=== PATIENT | male | born 1965 | race Caucasian/White ===

== ENCOUNTER 2017-07-11 13:37 | Emergency (ER) | payer OTHER ==
[~2017-07-11] VITALS: Ht 185.4 cm; Wt 105.4 kg
[2017-07-11 13:44] VITALS: TEMP 37.2; Ht 185.4 cm; Wt 105.4 kg
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
[2017-07-11] MEDS ORDERED: SODIUM CHLORIDE 0.9% 1000ML 1,000 ML IV STA (14:22)
[2017-07-11] MEDS ORDERED: OPTIRAY 320 IV PRN (14:30)
[2017-07-11 15:07] LABS: ISTAT CREATININE 0.8 mg/dl (0.6-1.3); ISTAT IONIZED CALCIUM 1.16 mmol/l (1.12-1.32)
--- NOTE | 2017-07-11 15:10 | DIAGNOSTIC IMAGING REPORT ---
LEFT FOOT MIN 3 VIEWS ROUTINE CLINICAL HISTORY: L foot pain, swelling pain. Edema. COMPARISON: None. DISCUSSION: Severe degenerative change first metatarsophalangeal joint. Sclerosis of the articular services. Moderate surrounding soft tissue edematous change. Heel spur. No additional acute bony abnormality. There is no evidence for soft tissue swelling. IMPRESSION: Significant degenerative change first metatarsophalangeal joint with surrounding soft tissue edematous change. Heel spur. The above report was generated using voice recognition software. It may contain grammatical, syntax or spelling errors. Electronically signed by: Emre Hernandez M.D. 07/11/2017 3:08 PM Dictated Date/Time: 07/11/2017 3:07 PM
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
[2017-07-11 17:34] VITALS: BP 143/94; PULSE 71; O2SAT 99
== END 2017-07-11 17:23 | disposition home or self-care (01) ==
LOC: C.EDC 13:41
DX: S90.32XA Contusion of left foot, initial encounter (principal); S20.20XA Contusion of thorax, unspecified, initial encounter; V49.40XA Driver injured in collision with unspecified motor vehicles in traffic accident, initial encounter